=== PATIENT | female | born 1955 | race Two or more races ===

== ENCOUNTER 2018-03-06 13:20 | Outpatient (CLI) | payer OTHER | END 2018-03-06 13:23 | disposition home or self-care (01) | LOC: MAMO-SONO 13:20 | DX: Z12.31 Encounter for screening mammogram for malignant neoplasm of breast (principal); N60.11 Diffuse cystic mastopathy of right breast; N60.12 Diffuse cystic mastopathy of left breast ==

== ENCOUNTER → 2020-07-10 12:56 | Outpatient (CLI) | payer OTHER | END | disposition home or self-care (01) | LOC: PPH VACUNA 12:56 | DX: Z23 Encounter for immunization (principal) ==

== ENCOUNTER → 2022-03-19 | Outpatient (CLI) | payer OTHER | END | disposition home or self-care (01) | LOC: MAMO-SONO 10:07 | DX: Z12.31 Encounter for screening mammogram for malignant neoplasm of breast (principal); N64.9 Disorder of breast, unspecified ==

== ENCOUNTER 2022-03-29 13:35 | Outpatient (CLI) | payer OTHER | END 2022-03-29 13:36 | disposition home or self-care (01) | LOC: NUCLEAR 13:35 | PROVIDERS: ATTEND Obstetrics & Gynecology Gynecology | DX: M81.0 Age-related osteoporosis without current pathological fracture (principal) ==